=== PATIENT | female | born 2000 | race Caucasian/White ===

== ENCOUNTER 2023-04-22 16:10 | Outpatient (CLI) | payer OTHER, SELFPAY ==
[2023-04-22 19:21] LABS: Chlamydia DNA Amplified* NOT DETECTED (No Detected); GC DNA Amplified* NOT DETECTED (No Detected)
== END 2023-04-22 16:11 | disposition home or self-care (01) ==
LOC: NFLDREF 16:10
PROVIDERS: PCP Family Medicine; Visit Provider Registered Nurse
DX: Z11.3 Encounter for screening for infections with a predominantly sexual mode of transmission (principal)
CPT/HCPCS: 87491; 87591

== ENCOUNTER 2023-10-01 07:33 | Outpatient (CLI) | payer OTHER, SELFPAY | END 2023-10-01 07:34 | disposition home or self-care (01) | LOC: NFLDREF 10-08 13:30 | PROVIDERS: PCP Family Medicine; Referring Provider Family Medicine; Visit Provider Registered Nurse | DX: Z11.3 Encounter for screening for infections with a predominantly sexual mode of transmission (principal) | CPT/HCPCS: 86592; 86703; 86803; 87340 ==

== ENCOUNTER 2024-02-06 08:35 | Outpatient (CLI) | payer OTHER, SELFPAY | END 2024-02-06 08:36 | disposition home or self-care (01) | PROVIDERS: PCP Family Medicine; Visit Provider Family Medicine | DX: L65.9 Nonscarring hair loss, unspecified (principal); R73.03 Prediabetes; E66.01 Morbid (severe) obesity due to excess calories; R53.83 Other fatigue; R03.0 Elevated blood-pressure reading, without diagnosis of hypertension; F41.9 Anxiety disorder, unspecified; L70.9 Acne, unspecified | CPT/HCPCS: 80053; 80061; 82607; 82728; 84443 ==